=== PATIENT | female | born 1935 | race Caucasian/White ===

== ENCOUNTER 2016-11-02 09:40 | Inpatient (IN) | payer MEDICARE ==
[2016-11-02 09:45] VITALS: BMI 19.5
--- NOTE | 2016-11-02 09:53 | ED PDOC ---
HPI: General Adult Time Seen by Provider: 11/02/16 09:46 Chief Complaint (Provider): rectal bleeding History Per: Patient History/Exam Limitations: no limitations Additional Complaint(s): 81yo female with abdominal pain since 1800 yesterday. Passed a bloody bowel movement afterwards, which started as diarrhea. She used immodium. No Hx abdominal problems. No dysuria, hematuria, fever, nausea, vomit, constipation, dark stools. Past Medical History Reviewed: Historical Data, Nursing Documentation, Vital Signs Vital Signs: Last Vital Signs Temp 98 F 11/02/16 09:44 Pulse 82 11/02/16 09:44 Resp BP 127/67 11/02/16 09:44 Pulse Ox 99 11/02/16 09:55 - Medical History PMH: HTN - Surgical History Surgical History: No Surg Hx - Family History Family History: States: Unknown Family Hx - Allergies Allergies/Adverse Reactions: Allergies Allergy/AdvReac Type Severity Reaction Status Date / Time No Known Allergies Allergy Verified 11/02/16 10:15 Review of Systems ROS Statement: Except As Marked, All Systems Reviewed And Found Negative Gastrointestinal: Positive for: Abdominal Pain, Diarrhea. Negative for: Nausea , Vomiting, Constipation Genitourinary Female: Negative for: Dysuria, Hematuria Physical Exam - Reviewed Nursing Documentation Reviewed: Yes Vital Signs Reviewed: Yes - Physical Exam Appears: Positive for: Well, Non-toxic, No Acute Distress Head Exam: Positive for: ATRAUMATIC, NORMAL INSPECTION, NORMOCEPHALIC Skin: Positive for: Warm, Dry Eye Exam: Positive for: EOMI, PERRL Cardiovascular/Chest: Positive for: Regular Rate, Rhythm Respiratory: Positive for: Normal Breath Sounds. Negative for: Rales, Rhonchi, Wheezing Gastrointestinal/Abdominal: Positive for: Soft. Negative for: Tenderness - Laboratory Results Result Diagrams: 11/02/16 10:00 11/02/16 10:00 - ECG O2 Sat by Pulse Oximetry: 99 (RA) Pulse Ox Interpretation: Normal Medical Decision Making Medical Decision Makin Patient agrees to labs, CT abd/pel. Disposition - Clinical Impression Clinical Impression: Colitis - Patient ED Disposition Is Patient to be Admitted: Yes - Disposition Disposition Time: 14:01 Condition: FAIR - Pt Status Changed To: Hospital Disposition Of: Observation - POA Present On Arrival: None Additional Comments - Additional Comments Additional Comments: Scribe Attestation: Documented by Benja Fitzgerald acting as a scribe for Missael Lawton MD. Provider Attestation: All medical record entries made by the Scribe were at my direction and personally dictated by me. I have reviewed the chart and agree that the record accurately reflects my personal performance of the history, physical exam, medical decision making, and the department course for this patient. I have also personally directed, reviewed, and agree with the discharge instructions and disposition.
[2016-11-02] MEDS ORDERED: Sodium Chloride 0.9% 1,000 ML IV STA ×2 (09:55→14:35)
[2016-11-02 10:19] LABS: BASO % 0.3 % (0.0-2.0); EOS % 0.4 % (0.0-4.0); HEMATOCRIT 40.1 % (34.0-47.0); LYMPH # 2.5 K/uL (1.0-4.3); LYMPH % 26.4 % (20.0-40.0); MEAN CELL VOLUME 96.4 fl (81.0-99.0); MEAN CORPUSCULAR HEMOGLOBIN 32.3 pg (27.0-31.0); MEAN CORPUSCULAR HGB CONC 33.5 g/dL (33.0-37.0); MEAN PLATELET VOLUME 7.9 fl (7.2-11.7); MONO # 0.5 K/uL (0.0-0.8); MONO % 5.6 % (0.0-10.0); NEUT # 6.3 K/uL (1.8-7.0); NEUT % 67.3 % (50.0-75.0); NRBC % 0.2 % (0.0-0.0); RED CELL DISTRIBUTION WIDTH 12.7 % (11.5-14.5); WHITE BLOOD COUNT 9.4 K/uL (4.8-10.8)
[2016-11-02 10:32] LABS: ALB/GLOB RATIO 1.1 (1.0-2.1); ALKALINE PHOSPHATASE 69 U/L (38-126); ALT/SGPT 36 U/L (9-52); AST/SGOT 30 U/L (14-36); BILIRUBIN,TOTAL 0.5 mg/dl (0.2-1.3); BLOOD UREA NITROGEN 15 mg/dl (7-17); CALCIUM 8.5 mg/dL (8.4-10.2); CARBON DIOXIDE 25 mmol/L (22-30); CHLORIDE 108 mmol/L (98-107); GFR AFRICAN-AMERICAN > 60; GLUCOSE,RANDOM 94 mg/dL (65-105); POTASSIUM 4.3 MMOL/L (3.6-5.0); SODIUM 141 mmol/l (132-148); TOTAL PROTEIN 7.6 G/DL (6.3-8.2)
[2016-11-02] MEDS ORDERED: Iohexol 240 (50 ml) PO ONE (10:50)
[2016-11-02] MEDS ORDERED: Iohexol 240 (50 ml) ONE (11:06)
[2016-11-02] MEDS ORDERED: Iohexol 300 100 ML IJ ONE (12:44)
[2016-11-02] MEDS ORDERED: Sodium Chloride 0.9% 50 ML IV ONE (12:44)
--- NOTE | 2016-11-02 13:35 | CT ---
PROCEDURE: CT Abdomen and Pelvis with oral and IV contrast. HISTORY: abd pain COMPARISON: None available. TECHNIQUE: Contiguous axial images of the abdomen and pelvis. Oral and IV contrast was administered. Coronal and Sagittal reformats generated and reviewed. Contrast dose: 95 cc Omnipaque 300 Radiation dose: Total exam DLP = 272.09 mGy-cm. This CT exam was performed using one or more of the following dose reduction techniques: Automated exposure control, adjustment of the mA and/or kV according to patient size, and/or use of iterative reconstruction technique. FINDINGS: LOWER THORAX: Scattered regions of subsegmental atelectasis. No visible pleural effusion or pneumothorax. LIVER: Hypoattenuation of the liver compatible with hepatic steatosis. GALLBLADDER AND BILE DUCTS: Unremarkable. PANCREAS: Pancreatic duct appears top normal measuring approximately 3 mm. Otherwise unremarkable. SPLEEN: Unremarkable. ADRENALS: Unremarkable. KIDNEYS AND URETERS: The kidneys enhance symmetrically. No hydronephrosis or obstructing renal calculus. 13 mm right upper pole hypodense lesion appears cystic however inadequately characterized on this contrast study. Renal ultrasound may be considered for confirmation. Tiny too small to characterize bilateral renal hypodensities; statistically likely cysts. BLADDER: The urinary bladder appears unremarkable. REPRODUCTIVE: Uterus is present. APPENDIX: Appendix is not identified. No secondary signs of acute appendicitis identified. BOWEL: The stomach is nondistended. The bowel loops appear within normal limits of caliber without evidence of intestinal obstruction. Severe mucosal wall thickening of the proximal left colon and distal transverse colon. Correlate clinically for colitis (i.e. infectious, inflammatory, ischemic) PERITONEUM: No significant free fluid. No definite free air. LYMPH NODES: No bulky lymphadenopathy identified. VASCULATURE: Scattered atherosclerotic calcifications. No aortic aneurysm. BONES: No acute osseous abnormality is detected. OTHER FINDINGS: Tiny fat containing umbilical hernia. IMPRESSION: Severe mucosal wall thickening of the proximal left colon and distal transverse colon. Correlate clinically for colitis (i.e. infectious, inflammatory, ischemic) . Recommend clinical correlation and follow-up as outpatient including colonoscopy if and when clinically indicated or feasible. Additional findings as above.
[2016-11-02] MEDS ORDERED: Ciprofloxacin 400mg/200ml D5W 400 MG/200 ML BAG IVPB STA (13:56)
[2016-11-02] MEDS ORDERED: metroNIDAZOLE 500mg/100ml NS 100 ML IVPB STA (13:56)
[2016-11-02] MEDS ORDERED: metroNIDAZOLE 500mg/100ml NS 100 ML IVPB ONE (14:03)
[2016-11-02 14:33] LABS: VENOUS BLOOD GAS BASE EXCESS -2.3 mmol/L (0.0-2.0); VENOUS BLOOD GAS PCO2 68 mmHg (40-60); VENOUS BLOOD PH 7.21 (7.32-7.43)
[2016-11-02] MEDS ORDERED: Ciprofloxacin 400mg/200ml D5W 400 MG/200 ML BAG IVPB ONE (15:22)
[2016-11-02 17:28] VITALS: RESP 20
[2016-11-02] MEDS ORDERED: Dextrose 5%-0.9% NS 100 ML IV SCH (18:13)
[2016-11-02] MEDS ORDERED: Dextrose 5%/0.9% NS 1,000 ML IV SCH (18:30)
[2016-11-02] MEDS: metroNIDAZOLE 500mg/100ml NS 100 ML IVPB SCH (20:19)
[2016-11-02] MEDS: Ciprofloxacin 400mg/200ml D5W 400 MG/200 ML BAG IVPB SCH (21:19)
[2016-11-03] MEDS: metroNIDAZOLE 500mg/100ml NS 100 ML IVPB SCH (08:42)
[2016-11-03] MEDS: Ciprofloxacin 400mg/200ml D5W 400 MG/200 ML BAG IVPB SCH (09:52)
[2016-11-03 11:22] LABS: BASO % 0.3 % (0.0-2.0); EOS # 0.1 K/uL (0.0-0.7); EOS % 1.8 % (0.0-4.0); HEMATOCRIT 39.3 % (34.0-47.0); LYMPH # 2.2 K/uL (1.0-4.3); LYMPH % 30.4 % (20.0-40.0); MEAN CELL VOLUME 95.6 fl (81.0-99.0); MEAN CORPUSCULAR HGB CONC 33.5 g/dL (33.0-37.0); MEAN PLATELET VOLUME 7.8 fl (7.2-11.7); MONO # 0.6 K/uL (0.0-0.8); MONO % 7.9 % (0.0-10.0); NEUT # 4.4 K/uL (1.8-7.0); NEUT % 59.6 % (50.0-75.0); NRBC % 0.1 % (0.0-0.0); RED CELL DISTRIBUTION WIDTH 12.5 % (11.5-14.5); WHITE BLOOD COUNT 7.3 K/uL (4.8-10.8)
[2016-11-03 11:33] LABS: ALB/GLOB RATIO 1.1 (1.0-2.1); ALKALINE PHOSPHATASE 55 U/L (38-126); ALT/SGPT 33 U/L (9-52); AST/SGOT 25 U/L (14-36); BILIRUBIN,TOTAL 0.4 mg/dl (0.2-1.3); BLOOD UREA NITROGEN 6 mg/dl (7-17); CALCIUM 8.2 mg/dL (8.4-10.2); CARBON DIOXIDE 24 mmol/L (22-30); CHLORIDE 109 mmol/L (98-107); GFR AFRICAN-AMERICAN > 60; GLUCOSE,RANDOM 113 mg/dL (65-105); POTASSIUM 3.4 MMOL/L (3.6-5.0); SODIUM 143 mmol/l (132-148); TOTAL PROTEIN 6.9 G/DL (6.3-8.2)
--- NOTE | 2016-11-03 11:55 | CP.PCM.HP ---
History of Present Illness - History of Present Illness History of Present Illness: A 81 yr old female with hx of HTN came with hx of having bloody stool for couple of times ,bright red , with abdominal cramping started sudden ,10\10 ,no specific radiation, did eat out side . denies hx of GI bleed in past. last colonoscopy was 10 yrs ago , with possible sigmoidoscopy 5 yrs ago. denies sick contacts, weight loss denies fhx of IBD CT abdomen showed colitis in transverse and left side . currently pain free ,feeling little better ,last BM was last am with watery stool . labs with wbc- normal, hb-stable Present on Admission - Present on Admission Any Indicators Present on Admission: No Review of Systems - Constitutional Constitutional: absent: Chills, Fatigue, Fever, Weight Loss - EENT Nose/Mouth/Throat: absent: Nasal Congestion, Dysphagia, Sore Throat - Cardiovascular Cardiovascular: Radiating Pain. absent: Chest Pain, Dyspnea, Leg Edema, Palpitations, Pedal Edema - Respiratory Respiratory: absent: Cough, Wheezing, Chest Congestion - Gastrointestinal Gastrointestinal: absent: Constipation, Cramping, Hematochezia, Loose Stools, Nausea, Vomiting - Genitourinary Genitourinary: absent: Nocturia, Urinary Frequency - Musculoskeletal Musculoskeletal: Limited Range of Motion. absent: Abnormal Gait, Muscle Weakness - Integumentary Integumentary: Dry Skin. absent: Rash, Sores - Neurological Neurological: absent: Frequent Falls, Paresthesias, Tingling - Psychiatric Psychiatric: absent: Behavioral Changes, Change in Libido, Hopelessness - Endocrine Endocrine: absent: Flushing - Hematologic/Lymphatic Hematologic: absent: Easy Bleeding, Lymphadenopathy Past Patient History - Infectious Disease Hx of Infectious Diseases: None - Past Social History Smoking Status: Never Smoked - CARDIAC Hx Cardiac Disorders: Yes - MUSCULOSKELETAL/RHEUMATOLOGICAL Hx Falls: No - PSYCHIATRIC Hx Substance Use: No Meds Allergies/Adverse Reactions: Allergies Allergy/AdvReac Type Severity Reaction Status Date / Time No Known Allergies Allergy Verified 11/02/16 10:15 Physical Exam - Constitutional Appears: No Acute Distress - Head Exam Head Exam: NORMAL INSPECTION - Eye Exam Eye Exam: EOMI, Normal appearance, PERRL - ENT Exam ENT Exam: Mucous Membranes Dry, Normal Exam - Neck Exam Neck exam: Positive for: Normal Inspection. Negative for: Lymphadenopathy - Respiratory Exam Respiratory Exam: Clear to Auscultation Bilateral, NORMAL BREATHING PATTERN. absent: Rales, Rhonchi, Wheezes - Cardiovascular Exam Cardiovascular Exam: REGULAR RHYTHM, +S1, +S2. absent: Systolic Murmur - GI/Abdominal Exam GI & Abdominal Exam: Normal Bowel Sounds, Soft. absent: Organomegaly, Tenderness - Extremities Exam Extremities exam: Positive for: normal inspection, pedal pulses present. Negative for: pedal edema, tenderness - Neurological Exam Neurological exam: Alert, Normal Gait, Oriented x3 - Psychiatric Exam Psychiatric exam: Normal Affect, Normal Mood - Skin Skin Exam: Intact, Normal Color Results - Vital Signs Recent Vital Signs: Last Vital Signs Temp 98.1 F 11/03/16 08:46 Pulse 72 11/03/16 08:46 Resp 20 11/03/16 08:46 BP 139/78 11/03/16 08:46 Pulse Ox 95 11/03/16 08:46 - Labs Result Diagrams: 11/03/16 11:18 11/03/16 11:18 Labs: Laboratory Results - last 24 hr 11/03/16 11:18 WBC 7.3 RBC 4.11 Hgb 13.1 Hct 39.3 MCV 95.6 MCH 32.0 H MCHC 33.5 RDW 12.5 Plt Count 175 MPV 7.8 Neut % (Auto) 59.6 Lymph % (Auto) 30.4 [place] % (Auto) 7.9 Eos % (Auto) 1.8 Baso % (Auto) 0.3 Neut # 4.4 Lymph # 2.2 [place] # 0.6 Eos # 0.1 Baso # 0.0 - Imaging and Cardiology CT scan - abdomen Status: Report reviewed by me Assessment & Plan (1) Colitis Assessment and Plan: christina infectious stool work up c-diff too ivf NPO IV abx resume fluids this am-tolerating well. patient insists to go home and f\u as OP unable to provide stool sample -unlikely c-diff\ischemia colitis as she does not sig risk factors except age advise to f\u GI OP Status: Acute (2) Hypokalemia Status: Acute Comment: replace with k. advise k rich food. to f\u PMD for blood work. (3) Essential (primary) hypertension Assessment and Plan: resume meds Status: Chronic Decision To Admit - Pt Status Changed To: Hospital Disposition Of: IP to OP/OBS (Code 44) - . Bed Request Type: Med/Surg Admitting Physician: Ovidio Owusu
[2016-11-03] MEDS ORDERED: Potassium Chloride 20 mEq ER Tab PO ONE (12:30)
--- NOTE | 2016-11-03 13:29 | CARD ---
APPROVED REPORT EKG Measurement Heart [id number] <Conclusion> Sinus rhythm with premature atrial complexes Otherwise normal ECG
[2016-11-03 16:22] VITALS: BP 153/79; PULSE 76; TEMP 97.9; O2SAT 97
--- NOTE | 2016-11-03 19:02 | CP.PCM.DIS ---
Provider - Provider Date of Admission: 11/02/16 13:59 Attending physician: Ovidio Owusu MD Primary care physician: Non [facility] Provider Time Spent in preparation of Discharge (in minutes): 10 Diagnosis - Discharge Diagnosis (1) Colitis Status: Acute Priority: Medium Comment: on cipro\flagyl for 2 wks. f\u GI. BLAND DIET. if wose come back to ER. she insisits to go hoe as she visiting family (2) Hypokalemia Status: Acute (3) Essential (primary) hypertension Status: Chronic Hospital Course - Lab Results Lab Results: Micro Results 11/02/16 14:20 Blood Blood Culture - Preliminary NO GROWTH AFTER 24 HOURS Most Recent Lab Values WBC 7.3 K/uL (4.8-10.8) 11/03/16 11:18 RBC 4.11 Mil/uL (3.80-5.20) 11/03/16 11:18 Hgb 13.1 g/dL (12.0-16.0) 11/03/16 11:18 Hct 39.3 % (34.0-47.0) 11/03/16 11:18 MCV 95.6 fl (81.0-99.0) 11/03/16 11:18 MCH 32.0 pg (27.0-31.0) H 11/03/16 11:18 MCHC 33.5 g/dL (33.0-37.0) 11/03/16 11:18 RDW 12.5 % (11.5-14.5) 11/03/16 11:18 Plt Count 175 K/uL (130-400) 11/03/16 11:18 MPV 7.8 fl (7.2-11.7) 11/03/16 11:18 Neut % (Auto) 59.6 % (50.0-75.0) 11/03/16 11:18 Lymph % (Auto) 30.4 % (20.0-40.0) 11/03/16 11:18 [place] % (Auto) 7.9 % (0.0-10.0) 11/03/16 11:18 Eos % (Auto) 1.8 % (0.0-4.0) 11/03/16 11:18 Baso % (Auto) 0.3 % (0.0-2.0) 11/03/16 11:18 Neut # 4.4 K/uL (1.8-7.0) 11/03/16 11:18 Lymph # 2.2 K/uL (1.0-4.3) 11/03/16 11:18 [place] # 0.6 K/uL (0.0-0.8) 11/03/16 11:18 Eos # 0.1 K/uL (0.0-0.7) 11/03/16 11:18 Baso # 0.0 K/uL (0.0-0.2) 11/03/16 11:18 PT 10.9 Seconds (9.8-13.1) 11/02/16 10:00 INR 1.0 (0.9-1.2) 11/02/16 10:00 pO2 17 mm/Hg (30-55) L 11/02/16 13:59 VBG pH 7.21 (7.32-7.43) L 11/02/16 13:59 VBG pCO2 68 mmHg (40-60) H* 11/02/16 13:59 VBG HCO3 21.3 mmol/L 11/02/16 13:59 VBG Total CO2 29.3 mmol/L (22-28) H 11/02/16 13:59 VBG O2 Sat (Calc) 31.6 % (40-65) L 11/02/16 13:59 VBG Base Excess -2.3 mmol/L (0.0-2.0) L 11/02/16 13:59 VBG Potassium 3.6 mmol/L (3.6-5.2) 11/02/16 13:59 Sodium 144.0 mmol/L (132-148) 11/02/16 13:59 Chloride 110.0 mmol/L (98-107) H 11/02/16 13:59 Glucose 83 mg/dL (65-105) 11/02/16 13:59 Lactate 3.6 mmol/L (0.7-2.1) H 11/02/16 13:59 FiO2 21.0 % 11/02/16 13:59 Blood Gas Comments Vbg 11/02/16 13:59 Crit Value Called To Jordana omer r.n. 11/02/16 13:59 Crit Value Called By Krista 11/02/16 13:59 Crit Value Read Back Y 11/02/16 13:59 Blood Gas Notified Time 1433 11/02/16 13:59 Sodium 143 mmol/l (132-148) 11/03/16 11:18 Potassium 3.4 MMOL/L (3.6-5.0) L 11/03/16 11:18 Chloride 109 mmol/L (98-107) H 11/03/16 11:18 Carbon Dioxide 24 mmol/L (22-30) 11/03/16 11:18 Anion Gap 13 (10-20) 11/03/16 11:18 BUN 6 mg/dl (7-17) L 11/03/16 11:18 Creatinine 0.6 mg/dL (0.7-1.2) L 11/03/16 11:18 Est GFR ( Amer) > 60 11/03/16 11:18 Est GFR (Non-Af Amer) > 60 11/03/16 11:18 Random Glucose 113 mg/dL (65-105) H 11/03/16 11:18 Lactic Acid 0.9 MMOL/L (0.7-2.1) 11/03/16 11:18 Calcium 8.2 mg/dL (8.4-10.2) L 11/03/16 11:18 Total Bilirubin 0.4 mg/dl (0.2-1.3) 11/03/16 11:18 AST 25 U/L (14-36) 11/03/16 11:18 ALT 33 U/L (9-52) 11/03/16 11:18 Alkaline Phosphatase 55 U/L (38-126) 11/03/16 11:18 Total Protein 6.9 G/DL (6.3-8.2) 11/03/16 11:18 Albumin 3.6 g/dL (3.5-5.0) 11/03/16 11:18 Globulin 3.3 gm/dL (2.2-3.9) 11/03/16 11:18 Albumin/Globulin Ratio 1.1 (1.0-2.1) 11/03/16 11:18 Venous Blood Potassium 3.6 mmol/L (3.6-5.2) 11/02/16 13:59 Discharge Exam - Head Exam Head Exam: NORMAL INSPECTION Discharge Plan - Follow Up Plan Condition: FAIR Disposition: HOME/ ROUTINE Instructions: Infectious Colitis (GEN) Additional Instructions: follow up with PMD. Referrals: Non [facility] Provider, [Primary Care Provider] -
== END 2016-11-03 19:24 | disposition home or self-care (01) | DRG 392 ==
LOC: H.ER 09:40 → SUPCPDRO 09:40 → H.ERHOLD 13:59 → OBSVTOIN 13:59 → H.MEDSURG1 16:37
PROVIDERS: ADMIT Internal Medicine; ATTEND Internal Medicine
DX: A09 Infectious gastroenteritis and colitis, unspecified (principal); I10 Essential (primary) hypertension; E87.6 Hypokalemia